=== PATIENT | female | born 1990 | race Hispanic/Latino ===

== ENCOUNTER 2020-04-17 08:26 | Outpatient (CLI) | payer OTHER ==
--- NOTE | 2020-04-17 09:13 | ULT ---
Complete obstetrical ultrasound INDICATION: Cervical length and anatomy TECHNIQUE: Grayscale, M-mode Doppler and Doppler images were obtained of the abdomen and pelvis to ev aluate the patient's known . COMPARISON: None FINDINGS: Number of gestations: Single. Presentation: Breech. Placental location: Anterior Previa: No evidence for previa. Cervical length: 3.4 cm without evidence of funneling TRACI: 13.44 cm. heart rate: 146 bpm. Biparietal diameter: 4.81cm, 20 weeks and 4 days, Not calculated.. Head circumference: 18.72 cm, 21 weeks and 1 day, not calculated Abdominal circumference: 16.35 cm, 21 weeks and 3 days, Not calculated. Femoral length: 3.42cm, 20 weeks and 6 days, Not calculated. Estimated weight: 398 g +/- 58g 0 lbs. 14 oz. +/- 2 ounces, 21st percentile SURVEY: head: Normal appearing. Cerebellum: Normal appearing. Cisterna magna: Normal appearing. Lateral ventricles: Normal appearing. 4 chamber heart: Normal appearing.. Stomach: Normal appearing. Kidneys: Normal appearing. Cord insertion: Normal appearing. Bladder: Normal appearing. Spine: Normal appearing. Lips and nose: Normal appearing. Extremities: Normal appearing. Three-vessel CORD: Normal appearing. The average gestational age by ultrasound is 21 weeks and 0 dayswith estimated due date of August 172020. The estimated dates by clinical data is 21 weeks and 4 dayswith estimated due date of August 24. IMPRESSION: 1. Single live intrauterine gestation with size and dates as above.
== END 2020-04-17 08:27 | disposition home or self-care (01) ==
LOC: BICULT 08:26
PROVIDERS: ATTEND Family Medicine
DX: O09.92 Supervision of high risk pregnancy, unspecified, second trimester (principal); Z3A.21 21 weeks gestation of pregnancy
CPT/HCPCS: 76805